=== PATIENT | female | born 1970 | race Caucasian/White ===

== ENCOUNTER 2016-11-05 20:25 | Emergency (ER) | payer MEDICAID ==
--- NOTE | 2016-11-05 22:49 | ED Physician Chart ---
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 SHE DENIES TRAUMA OR A BLOOD CLOT IN THE LEG IN THE PAST. SHE DENIES ANY OLD OR RECENT RIGHT LEG PROBLEMS. SHE STATES THAT SHE HAS RIGHT KNEE PAIN ALONG WITH LEG PAIN. SHE STATES THAT SHE HAB BEEN OBESE FOR MANY YEARS. Allergies:: Allergies Allergy/AdvReac Type Severity Reaction Status Date / Time No Known Allergies Allergy Verified 11/05/16 21:48 Vitals:: Vital Signs - 8 hr 11/05/16 21:37 Temp 97.8 F HR 78 RR 18 BP 135/70 O2 Sat % 97 Historian:: Patient Review:: Nurse's Note Reviewed Review of Systems - Review of Systems General/Constitutional: Fever, No fever, No chills, No weight loss, No weakness , No diaphoresis, No edema, No loss of appetite, Other (OBESE) Skin: No skin lesions, No rash, No bruising Head: No headache, No light-headedness Eyes: No loss of vision, No pain, No diplopia ENT: No earache, No nasal drainage, No sore throat, No tinnitus Neck: No neck pain, No swelling, No thyromegaly, No stiffness, No mass noted Cardio Vascular: No chest pain, No palpitations, No PND, No orthopnea, No edema Pulmonary: No SOB, No cough, No sputum, No wheezing GI: No nausea, No vomiting, No diarrhea, No pain, No melena, No hematochezia, No constipation, No hematemesis G/U: No dysuria, No frequency, No hematuria Musculoskeletal: Bone or joint pain, No back pain, No muscle pain, Other (THE RIGHT LOWER EXTREMITY IS TENDER TO TOUCH AND IS WARM WITH NORMAL BUT PAINFUL ROM.) Endocrine: No polyuria, No polydipsia Psychiatric: No prior psych history, No depression, No anxiety, No suicidal ideation Hematopoietic: No bruising, No lymphadenopathy Allergic/Immuno: No urticaria, No angioedema Neurological: No syncope, No focal symptoms, No weakness, No paresthesia, No headache, No seizure, No dizziness, No confusion, No vertigo Past Medical History - Past Medical History Obtainable: Yes Past Medical History: Dyslipidemia, Other (OBESITY) Family History: Diabetes Melitus, HTN Social History: Non Smoker, No Alcohol, No Drug Use Surgical History: Cholecystectomy, (THREE C-SECTIONS) Medication: Reviewed Family Medical History - Family Member Mother History Unknown: Yes Hx Family Coronary Artery Disease: Yes Hx Family Diabetes: Yes Physical Exam - Physical Examination General/Constitutional: Awake, Well-developed, well-nourished, Alert, No distress, GCS 15, Non-toxic appearing, Ambulatory Other Gen/Cons comments:: OBESE Head: Atraumatic Eyes: Lids, conjuctiva normal, PERRL, EOMI Skin: Nl inspection, No rash, No skin lesions, No ecchymosis, Well hydrated, No lymphadenopathy ENMT: External ears, nose nl, Nasal exam nl, Lips, teeth, gums nl Neck: Nontender, Full ROM w/o pain, No JVD, No nuchal rigidity, No bruit, No mass, No stridor Respiratory: Nl effort/Exclusion, Clear to Auscultation, No Wheeze/Rhonchi/Rales Cardio Vascular: RRR, No murmur, gallop, rubs, NL S1 S2 GI: No tenderness/rebounding/guarding, No organomegaly, No hernia, Normal BS's, Nondistended, No mass/bruits, No McBurney tenderness : No CVA tenderness Extremities: No tenderness or effusion, Full ROM, normal strength in all extremities, No edema, Normal digits & nails Other Extremities comments:: THE RIGHT THIGH AND CALF IS TENDER TO TOUCH AND WARM WITH PAINFUL BUT NORMAL ROM. THE PULSES ARE ALL NORMAL Neuro/Psych: Alert/oriented, DTR's symmetric, Normal sensory exam, Normal motor strength, Judgement/insight normal, Mood normal, Normal gait, No focal deficits Misc: normal gait, Normal back, No paraspinal tenderness Labs/Radiology/EKG Results - Lab Results Results: Abnormal Lab Results 11/05/16 11/05/16 11/05/16 22:15 22:42 22:42 WBC RBC Hgb Hct MCV MCH MCHC Differential RDW Plt Count MPV Neutrophils % Lymphocytes % Monocytes % Eosinophils % Basophils % PT 9.2 L INR 0.93 Sodium Potassium Chloride Carbon Dioxide Anion Gap BUN Creatinine Est GFR ( Amer) Est GFR (Non-Af Amer) BUN/Creatinine Ratio Glucose Calcium Total Bilirubin AST ALT Alkaline Phosphatase Troponin I Total Protein Albumin Globulin Albumin/Globulin Ratio Triglycerides 204 H Cholesterol 159 LDL Cholesterol Direct 101 HDL Cholesterol 39 TSH Urine Test NEGATIVE 11/05/16 11/05/16 11/05/16 22:42 22:42 22:42 WBC 10.1 RBC 4.86 Hgb 12.9 Hct 38.7 MCV 79.7 L MCH 26.5 L MCHC Differential 33.2 RDW 13.2 Plt Count 249 MPV 9.4 Neutrophils % 56.5 Lymphocytes % 32.0 Monocytes % 7.1 Eosinophils % 3.6 Basophils % 0.8 PT INR Sodium 133 L Potassium 3.8 Chloride 105 Carbon Dioxide 27.2 Anion Gap 4.6 L BUN 22 Creatinine 0.7 Est GFR ( Amer) > 60.0 Est GFR (Non-Af Amer) > 60.0 BUN/Creatinine Ratio 31.4 Glucose 110 H Calcium 9.6 Total Bilirubin 0.3 AST 21 ALT 21 Alkaline Phosphatase 78 Troponin I < 0.01 L Total Protein 7.8 Albumin 3.7 Globulin 4.1 Albumin/Globulin Ratio 0.9 L Triglycerides Cholesterol LDL Cholesterol Direct HDL Cholesterol TSH Urine Test 11/05/16 22:42 WBC RBC Hgb Hct MCV MCH MCHC Differential RDW Plt Count MPV Neutrophils % Lymphocytes % Monocytes % Eosinophils % Basophils % PT INR Sodium Potassium Chloride Carbon Dioxide Anion Gap BUN Creatinine Est GFR ( Amer) Est GFR (Non-Af Amer) BUN/Creatinine Ratio Glucose Calcium Total Bilirubin AST ALT Alkaline Phosphatase Troponin I Total Protein Albumin Globulin Albumin/Globulin Ratio Triglycerides Cholesterol LDL Cholesterol Direct HDL Cholesterol TSH 1.63 Urine Test - Radiology Results Results: ULTRA SOUND OF THE RIGHT LOWER EXT = NEG FOR DVT X-RAY OF THE RIGHT KNEE = NORMAL ED Septic Shock - . Is Septic Shock (SBP<90, OR Lactate>4 mmol\L) present?: No - <6hrs of presentation: Vital Signs: Vital Signs - 8 hr 11/05/16 21:37 Temp 97.8 F HR 78 RR 18 BP 135/70 O2 Sat % 97 Reassessment (Disposition) - Reassessment Reassessment Condition:: Improved - Diagnosis Diagnosis:: CELLULITIS OF THE RIGHT LOWER EXTREMITY - Aftercare/Follow up Instructions Aftercare/Follow-Up Instructions:: Counseled pt regarding lab results/diagnosis & need follow up, Refer to Discharge Instructions, Counseled pt & family regarding lab results/diagnosis & need follow up - Patient Disposition Discharge/Transfer:: Home Condition at Disposition:: Improved ED Discharge Plan - Patient Disposition Admit/Discharge/Transfer: PT DISCHARGED HOME Condition at Disposition: Improved
[2016-11-05 23:04] LABS: % BASOPHILS 0.8 % (0.0-2.0); % EOSINOPHILS 3.6 % (0.0-5.0); % MONOCYTES 7.1 % (2.0-10.0); % NEUTROPHILS 56.5 % (40.0-80.0); HEMATOCRIT 38.7 % (35.0-45.0); HEMOGLOBIN 12.9 gm/dL (11.7-15.5); MEAN CELL VOLUME 79.7 fl (81-100); MEAN CORPUSCULAR HEMOGLOBIN 26.5 pg (27.0-31.0); MEAN CORPUSCULAR HGB CONC 33.2 pg (28.0-36.0); MEAN PLATELET VOLUME 9.4 fl; NEUTROPHILE ABSOLUTE 5.7 Th/cmm (1.8-8.0); PLATELET COUNT 249 Th/cmm (150-400); RED BLOOD COUNT 4.86 Mil/cmm (3.80-5.10); RED CELL DISTRIBUTION WIDTH 13.2 % (11.5-20.0); WHITE BLOOD COUNT 10.1 Th/cmm (4.8-10.8)
[2016-11-05 23:16] LABS: ALB/GLOB RATIO 0.9 (1.0-1.8); ALKALINE PHOSPHATASE 78 U/L (34-104); ANION GAP 4.6 (7.0-16.0); BILIRUBIN,TOTAL 0.3 mg/dL (0.3-1.0); BUN - UREA NITROGEN 22 mg/dL (7-25); BUN/CREATININE RATIO 31.4; CALCIUM SERUM 9.6 mg/dL (8.6-10.3); CARBON DIOXIDE 27.2 mEq/L (21.0-31.0); CHLORIDE 105 mEq/L (98-107); CHOLESTEROL 159 mg/dL (<200); CREATININE - SERUM 0.7 mg/dL (0.6-1.2); GLUCOSE 110 mg/dL (70-105); POTASSIUM SERUM 3.8 mEq/L (3.5-5.1); SGOT 21 U/L (13-39); SGPT/ALT 21 U/L (7-52); SODIUM SERUM 133 mEq/L (136-145); TRIGLYCERIDES 204 mg/dL (<150)
[2016-11-05 23:23] LABS: INR 0.93 (0.5-1.4); PROTHROMBIN TIME (TEST) 9.2 SECONDS (9.5-11.5)
--- NOTE | 2016-11-06 10:40 | Diagnostic Imaging Report ---
Right lower extremity Doppler venous ultrasound exam HISTORY: Pain/swelling Sonographic sector images were obtained through the deep venous systems of the right leg. Associated Doppler data was obtained. The exam demonstrates patency of the common femoral, superficial femoral, popliteal, and posterior tibial veins. Specifically, no thrombus is seen. There are normal compressibility and augmentation responses. IMPRESSION: Negative exam for deep vein thrombophlebitis.
--- NOTE | 2016-11-06 10:41 | Diagnostic Imaging Report ---
Right knee (3 views) HISTORY: Pain No acute abnormalities. No fractures. Degenerative spur formation noted off the anterior margins of the patella. IMPRESSION: 1. No acute abnormalities 2. Degenerative changes about the patella
== END 2016-11-06 00:40 | disposition home or self-care (01) ==
LOC: ER 20:25
DX: L03.115 Cellulitis of right lower limb (principal); E78.5 Hyperlipidemia, unspecified
CPT/HCPCS: 99285; 93971; 96372; 73560; 84484; 36415; 84443; 85025; 85610; 83036; 81025; 80053; 80061; 87040 ×2; J1885

== ENCOUNTER 2017-02-12 18:20 | Inpatient (IN) | payer MEDICAID ==
[2017-02-12] MEDS ORDERED: Albuterol/Ipratropium Neb 3 ML AERS HHN ONE (18:23)
[2017-02-12] MEDS ORDERED: Sodium Chloride 0.9% 500 ML IV ONE (18:25)
[2017-02-12] MEDS ORDERED: Ipratropium Neb 0.5 mg/2.5 mL UD HHN ONE (18:26)
[2017-02-12] MEDS ORDERED: Albuterol Nebulizer 2.5mg/3mL HHN ONE (18:26)
[2017-02-12] MEDS ORDERED: Codeine/Promethazine Susp 5 mL UDC PO STA (19:36)
[2017-02-12] MEDS ORDERED: Codeine/Promethazine Susp 5 mL UDC ONE (19:37)
[2017-02-12 20:32] LABS: % BASOPHILS 0.1 % (0.0-2.0); % EOSINOPHILS 0.9 % (0.0-5.0); % LYMPHOCYTES 13.3 % (20.0-50.0); % MONOCYTES 3.9 % (2.0-10.0); % NEUTROPHILS 81.8 % (40.0-80.0); HEMATOCRIT 35.9 % (35.0-45.0); HEMOGLOBIN 12.5 gm/dL (11.7-15.5); MEAN CORPUSCULAR HEMOGLOBIN 27.8 pg (27.0-31.0); MEAN CORPUSCULAR HGB CONC 34.7 pg (28.0-36.0); PLATELET COUNT 222 Th/cmm (150-400); RED BLOOD COUNT 4.49 Mil/cmm (3.80-5.10); RED CELL DISTRIBUTION WIDTH 13.5 % (11.5-20.0)
[2017-02-12] MEDS ORDERED: Azithromycin 500 MG in Sodium Chloride 0.9% 250 ML IV ONE (20:38)
[2017-02-12] MEDS ORDERED: cefTRIAXone 1 GM in Sodium Chloride 0.9% 50 ML IV ONE (20:39)
[2017-02-12 20:45] LABS: ALB/GLOB RATIO 0.9 (1.0-1.8); ALKALINE PHOSPHATASE 73 U/L (34-104); ANION GAP 19.5 (7.0-16.0); BILIRUBIN,TOTAL 0.4 mg/dL (0.3-1.0); BUN - UREA NITROGEN 14 mg/dL (7-25); BUN/CREATININE RATIO 23.3; CALCIUM SERUM 9.1 mg/dL (8.6-10.3); CARBON DIOXIDE 22.2 mEq/L (21.0-31.0); CHLORIDE 103 mEq/L (98-107); CREATININE - SERUM 0.6 mg/dL (0.6-1.2); GLUCOSE 172 mg/dL (70-105); POTASSIUM SERUM 3.7 mEq/L (3.5-5.1); SGOT 18 U/L (13-39); SGPT/ALT 17 U/L (7-52); SODIUM SERUM 141 mEq/L (136-145)
[2017-02-12 20:48] LABS: WHITE BLOOD COUNT 12.2 Th/cmm (4.8-10.8)
--- NOTE | 2017-02-12 20:59 | ED Physician Chart ---
Chief Complaint/HPI - Patient Information Date Seen:: 02/12/17 Time Seen:: 19:01 Chief Complaint:: shortness of breath History of Present Illness:: 46-year-old female history of asthma, brought in by ambulance with acute, severe , shortness of breath that started about 20 minutes prior to arrival. Symptoms were started off with emotional upset when she was at her father's service. Has had associated cough for the past 2 months. Typically uses albuterol which helps her symptoms but this time it did not help. Denies fevers , chest pain, palpitations, nausea, vomiting, acute vision changes, headache. Allergies:: Allergies Allergy/AdvReac Type Severity Reaction Status Date / Time No Known Allergies Allergy Verified 11/05/16 21:48 Vitals:: Vital Signs - 8 hr 02/12/17 02/12/17 18:30 18:31 Temp 97.5 F HR 102 111 RR 20 24 BP 145/75 O2 Sat % 98 99 Historian:: Patient Review:: Nurse's Note Reviewed Review of Systems - Review of Systems Other: Complete system review otherwise unremarkable except as noted in history of present illness. Past Medical History - Past Medical History Past Medical History: Asthma/COPD Family History: None Social History: Non Smoker, No Alcohol, No Drug Use, Employed Surgical History: None Psychiatricy History: None Medication: Reviewed Family Medical History - Family Member Mother History Unknown: Yes Hx Family Coronary Artery Disease: Yes Hx Family Diabetes: Yes Physical Exam - Physical Examination Other:: INITIAL VITAL SIGNS: Reviewed by me GENERAL: Alert and interactive. In moderate respiratory distress HEAD: Head is normocephalic and atraumatic EYES: EOMI. PERRL. No scleral icterus. No conjunctival injection ENT: Moist mucous membranes. NECK: Supple. No masses. Full range of motion RESPIRATORY: Tachypneic with bilateral wheezing. CV: Regular rate and rhythm. No murmurs, rubs, or gallops ABDOMEN: Soft, non-distended, non-tender. No guarding. No rebound. No masses. EXTREMITIES: No deformity. No cyanosis. No edema. SKIN: Warm and dry. No obvious rashes. NEUROLOGIC: Alert and oriented. Face is symmetric. Speech is normal. Moves all extremities equally. Motor and sensory distally intact. Labs/Radiology/EKG Results - Lab Results Results: Laboratory Tests 02/12/17 02/12/17 02/12/17 20:20 20:20 20:20 WBC 12.2 H D RBC 4.49 Hgb 12.5 Hct 35.9 MCV 80.0 L MCH 27.8 MCHC Differential 34.7 RDW 13.5 Plt Count 222 MPV 9.0 Neutrophils % 81.8 H Lymphocytes % 13.3 L Monocytes % 3.9 Eosinophils % 0.9 Basophils % 0.1 Sodium 141 Potassium 3.7 Chloride 103 Carbon Dioxide 22.2 Anion Gap 19.5 H BUN 14 Creatinine 0.6 Est GFR ( Amer) > 60.0 Est GFR (Non-Af Amer) > 60.0 BUN/Creatinine Ratio 23.3 Glucose 172 H Whole Bld Lactic Acid 2.06 H* Calcium 9.1 Total Bilirubin 0.4 AST 18 ALT 17 Alkaline Phosphatase 73 Total Protein 7.0 Albumin 3.4 L Globulin 3.6 Albumin/Globulin Ratio 0.9 L - Radiology Results Results: Single AP VIEW Portable Chest X-ray was interpreted independently and contemporaneously by Doris Navarro MD: No cardiomegaly Normal mediastinum No lung infiltrates No pneumothorax No soft tissue or bony abnormalities - EKG Interpretations Comments:: 12-lead EKG Interpretation by Doris Navarro MD: Sinus tachycardia with ventricular rate of 101 beats per minute Normal axis Normal intervals No acute ST or T wave changes. No obvious STEMI Assessment - Assessment General Assessment: Critical Care Time: 30 minutes Treatments/Evaluations: Close monitoring and treatment of unstable vital signs, cardiorespiratory, and neurologic status, while maintaining tight balance of fluid, respiratory, and cardiac interventions. This time includes discussing the case with the patient and the patient's family. This time does not include all procedures stated elsewhere in this record. This time also includes reviewing old records, labs and radiological studies. This time includes examining and re-examining the patient. Additionally, this time also includes arranging care with admitting and consulting physicians. Excludes all billable procedures: Yes This condition life threatening/high prob of deterioration: Yes ED Septic Shock - . Is Septic Shock (SBP<90, OR Lactate>4 mmol\L) present?: No - <6hrs of presentation: Vital Signs: Vital Signs - 8 hr 02/12/17 02/12/17 18:30 18:31 Temp 97.5 F HR 102 111 RR 20 24 BP 145/75 O2 Sat % 98 99 Reassessment (Disposition) - Reassessment Reassessment:: Patient in severe respiratory distress on arrival. Received Solu-Medrol and DuoNeb breathing treatment. Symptoms only improved a small amount. Remained tachycardic. Labs indicate elevated white count and lactic acid levels. No signs of pneumonia on x-ray however given history of asthma she will need antibiotics. This patient is septic with bronchitis. Discussed with admitting physician. Patient admitted for further workup and treatment. Reassessment Condition:: Unchanged, Improved - Diagnosis Diagnosis:: Sepsis, bronchitis Acute respiratory distress due to acute asthma exacerbation - Aftercare/Follow up Instructions Aftercare/Follow-Up Instructions:: Counseled pt regarding lab results/diagnosis & need follow up, Refer to Discharge Instructions - Patient Disposition Discharge/Transfer:: Home Admitting Medical Physician:: Nakul Hayes Time:: 19:45 Condition at Disposition:: Improved ED Discharge Plan - Patient Disposition Instructions: Anxiety and Panic Attacks, [id number], Asthma, Adult, Easy-to- Read
[2017-02-12] MEDS ORDERED: Sodium Chloride 0.9% 1,000 ML IV SCH (21:22)
[2017-02-12 21:28] LABS: HCO3 24.8 mEq/L (20.0-26.0)
[2017-02-12 21:29] LABS: ABG SOURCE ARTERIAL
[2017-02-12] MEDS ORDERED: Albuterol/Ipratropium Neb 3 ML AERS HHN PRN (21:29)
[2017-02-12 21:30] LABS: FIO2 21
[2017-02-12 21:31] LABS: CRITICAL VALUES REPORTED BY DV
[2017-02-12] MEDS: Albuterol/Ipratropium Neb 3 ML AERS HHN SCH (22:55)
[2017-02-13] MEDS: Albuterol/Ipratropium Neb 3 ML AERS HHN SCH ×6 (03:22→23:42)
--- NOTE | 2017-02-13 04:21 | Admit Criteria Form ---
Admit Criteria Forms - Admit Criteria Diagnosis: SEPSIS and OTHER FEBRILE ILLNESS, W/O FOCAL INFECTION Clinical Indications for Admission to Inpatient Care ( Place 'X' for any and all applicable criteria): Admission is indicated for ANY ONE of the following (1)(2)(3)(4): [ ] I. Bacteremia [ ]II. Suspected or identified specific infection requiring hospitalization (eg, meningitis, endocarditis) [ ]III. Hemodynamic instability [ ]IV. Altered mental status [ ]V. Failure or unavailability of outpatient antimicrobial treatment [ ]. Hypoxemia [ ]VII. Seizures [ ]VIII. High-risk febrile neutropenia [ ]IX. Need for parenteral antibiotic in patient who is likely to abuse vascular access device (eg, injection drug user) [A](7) [ ]X. Temperature greater than 104.9 degrees F (40.5 degrees C) (oral) [x ]XI. Inpatient admission required rather than observation care because of ANY ONE of the following: [ ]1) Specific infection identified that is too severe for outpatient treatment or observation care trial [ ]2) Metabolic disorder (eg, hypoglycemia, hyperglycemia, metabolic acidosis) that is severe or persistent [ ]3) Temperature greater than 103.1 degrees F (39.5 degrees C) ( oral) that is not responsive to observation care treatment [ ]4) IV fluid to replace significant ongoing (eg, for over 24 hours) losses (> 3 L/m2 per day) [x ]5) Supplemental oxygen or respiratory treatments for over 24 hours that is performable only in acute inpatient setting [ ]6) Parenteral nutrition regimen need that must be implemented on inpatient basis [ ]7) Strict or protective (eg, laminar flow) isolation [x ]8) Other condition, treatment or monitoring requiring inpatient admission Extended stay beyond goal length of stay may be needed for(1)(3) [ ]a) Sepsis or septic shock(22) [ ]b) Positive blood cultures [ ]c) Insufficient oral intake [ ]d) High-risk febrile neutropenia(29)(30) [ ]e) Continued fever and clinical instability [ ]f) Clinically active comorbid illness (e.g,heart failure, renal failure , diabetes) The original [employer] content created by [employer] has been revised. The portions of the content which have been revised are identified through the use of italic text or in bold, and [employer] (formerly [employer]) has neither reviewed nor approved the modified material. All other unmodified content is copyright [facility]. Please see references footnoted in the original [facility] edition 2016 Admit Criteria Met?: Yes
[2017-02-13 06:11] LABS: % BASOPHILS 0.2 % (0.0-2.0); % EOSINOPHILS 0.1 % (0.0-5.0); % LYMPHOCYTES 10.3 % (20.0-50.0); % NEUTROPHILS 88.4 % (40.0-80.0); HEMATOCRIT 35.4 % (35.0-45.0); HEMOGLOBIN 11.8 gm/dL (11.7-15.5); MEAN CELL VOLUME 80.1 fl (81-100); MEAN CORPUSCULAR HEMOGLOBIN 26.7 pg (27.0-31.0); MEAN CORPUSCULAR HGB CONC 33.3 pg (28.0-36.0); MEAN PLATELET VOLUME 8.8 fl; NEUTROPHILE ABSOLUTE 8.5 Th/cmm (1.8-8.0); PLATELET COUNT 229 Th/cmm (150-400); RED BLOOD COUNT 4.42 Mil/cmm (3.80-5.10); RED CELL DISTRIBUTION WIDTH 13.7 % (11.5-20.0)
[2017-02-13 06:13] LABS: WHITE BLOOD COUNT 9.6 Th/cmm (4.8-10.8)
[2017-02-13 06:42] LABS: ALB/GLOB RATIO 0.9 (1.0-1.8); ALKALINE PHOSPHATASE 57 U/L (34-104); ANION GAP 13.9 (7.0-16.0); BILIRUBIN,TOTAL 0.3 mg/dL (0.3-1.0); BUN - UREA NITROGEN 14 mg/dL (7-25); BUN/CREATININE RATIO 23.3; CALCIUM SERUM 8.7 mg/dL (8.6-10.3); CARBON DIOXIDE 19.1 mEq/L (21.0-31.0); CHLORIDE 108 mEq/L (98-107); CREATININE - SERUM 0.6 mg/dL (0.6-1.2); GLUCOSE 186 mg/dL (70-105); SGOT 16 U/L (13-39); SGPT/ALT 16 U/L (7-52); SODIUM SERUM 137 mEq/L (136-145)
--- NOTE | 2017-02-13 09:13 | Diagnostic Imaging Report ---
Portable chest x-ray HISTORY: Shortness of breath, cough The overall heart size is difficult to assess with portable technique in a poor inspiration. No acute focal pulmonary processes. No hilar or mediastinal abnormalities. IMPRESSION: 1. No focal pulmonary processes
[2017-02-13] MEDS ORDERED: Sodium Chloride 0.9% 1,000 ML IV SCH (13:56)
[2017-02-13] MEDS ORDERED: Lidocaine 5% Patch TD SCH (14:00)
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
[2017-02-13] MEDS: Pantoprazole 40 mg/Packet PO SCH (17:43)
[2017-02-13] MEDS: Budesonide 0.5 Mg/2 mL Ud HHN SCH (18:56)
[2017-02-13] MEDS ORDERED: Albuterol/Ipratropium Neb 3 ML AERS HHN SCH (19:00)
[2017-02-13] MEDS ORDERED: Budesonide 0.5 Mg/2 mL Ud HHN SCH (19:00)
[2017-02-13] MEDS: methylPREDNISolone SS 40 mg Vial IVP SCH (19:20)
[2017-02-14] MEDS: methylPREDNISolone SS 40 mg Vial IVP SCH ×4 (01:31→17:42)
[2017-02-14] MEDS: Albuterol/Ipratropium Neb 3 ML AERS HHN SCH ×6 (03:13→23:36)
[2017-02-14] MEDS: guaiFENesin 200 MG/10 ML UDC PO PRN ×2 (05:35→21:34)
[2017-02-14] MEDS: Budesonide 0.5 Mg/2 mL Ud HHN SCH ×2 (06:57→20:15)
[2017-02-14 07:25] LABS: HEMATOCRIT 33.1 % (35.0-45.0); HEMOGLOBIN 11.2 gm/dL (11.7-15.5); MEAN CELL VOLUME 80.9 fl (81-100); MEAN CORPUSCULAR HEMOGLOBIN 27.3 pg (27.0-31.0); MEAN CORPUSCULAR HGB CONC 33.7 pg (28.0-36.0); MEAN PLATELET VOLUME 9.1 fl; PLATELET COUNT 216 Th/cmm (150-400); RED CELL DISTRIBUTION WIDTH 13.9 % (11.5-20.0)
[2017-02-14 07:46] LABS: ALB/GLOB RATIO 0.9 (1.0-1.8); ALKALINE PHOSPHATASE 58 U/L (34-104); AMYLASE SERUM 31 U/L (29-103); ANION GAP 9.5 (7.0-16.0); BILIRUBIN,TOTAL 0.2 mg/dL (0.3-1.0); BUN - UREA NITROGEN 16 mg/dL (7-25); BUN/CREATININE RATIO 26.7; CARBON DIOXIDE 22.9 mEq/L (21.0-31.0); CHLORIDE 107 mEq/L (98-107); CHOLESTEROL 145 mg/dL (<200); CREATININE - SERUM 0.6 mg/dL (0.6-1.2); GLUCOSE 186 mg/dL (70-105); POTASSIUM SERUM 4.4 mEq/L (3.5-5.1); SGOT 14 U/L (13-39); SGPT/ALT 16 U/L (7-52); SODIUM SERUM 135 mEq/L (136-145); TRIGLYCERIDES 100 mg/dL (<150); URIC ACID 4.3 mg/dL (2.3-6.6)
[2017-02-14 08:16] LABS: URINE BILIRUBIN NEGATIVE (NEGATIVE); URINE COLOR YELLOW; URINE GLUCOSE (UA) NEGATIVE (NEGATIVE)
[2017-02-14 08:17] LABS: URINE BLOOD NEGATIVE (NEGATIVE); URINE KETONE NEGATIVE (NEGATIVE); URINE PROTEIN NEGATIVE (NEGATIVE); URINE UROBILINOGEN 0.2 E.U./dL (0.2 - 1.0)
[2017-02-14 08:34] LABS: TSH 0.23 uIU/ml (0.34-5.60)
[2017-02-14 08:45] LABS: BAND NEUTROPHILE 3 % (0-10); NEUTROPHILS 84 % (40-80); TOTAL CELLS COUNTED 100
[2017-02-14] MEDS: Pantoprazole 40 mg/Packet PO SCH (08:45)
[2017-02-14 08:46] LABS: PLATELET ESTIMATE ADEQUATE (NORMAL)
[2017-02-14 09:55] LABS: BE(B) -4.1 mEq/L (-3.0-3.0); HCO3 21.7 mEq/L (20.0-26.0); pH 7.36 (7.35-7.45)
[2017-02-14 09:56] LABS: ABG SOURCE Arterial; ALLEN TEST Positive; CRITICAL VALUES REPORTED BY ACELIS; FIO2 21
--- NOTE | 2017-02-14 11:21 | Diagnostic Imaging Report ---
Chest x-ray (3 views) HISTORY: Shortness of breath The exam is limited due to patient size, body habitus, and a very poor inspiration. The heart appears enlarged. There is a poor inspiration. Allowing for this factor, no definite focal processes are seen. IMPRESSION: 1. Limited exam due to patient's size, body habitus, and a poor inspiration 2. No definite focal pulmonary processes 3. Suggestion of cardiomegaly
--- NOTE | 2017-02-14 11:36 | Consultation ---
Consult Note - Consult Note Consult Note: [id number]
[2017-02-14] MEDS: Vancomycin HCl 1.5 GM in Sodium Chloride 0.9% 500 ML IV SCH ×2 (14:24→21:22)
--- NOTE | 2017-02-14 15:14 | Diagnostic Imaging Report ---
Chest x-ray (2 views) HISTORY: Shortness breath, cough The exam supplements the radiographs performed earlier in the day. Radiographic technique is optimized. No focal pulmonary processes are seen. No hilar or mediastinal abnormalities. IMPRESSION: No acute focal pulmonary processes.
--- NOTE | 2017-02-14 21:25 | Consultation ---
DATE OF CONSULTATION: 02/13/2017 REASON FOR CONSULTATION: Asthmatic bronchitis/possibly sleep apnea syndrome. HISTORY OF PRESENT ILLNESS: This is a 46-year-old female. She has been coughing on and off with some wheezing for the last 2-3 months, mostly is coughing, no shortness of breath and wheezing and feeling fatigued. She has been to the Emergency Room, was given steroid at [facility] as well as inhaled bronchodilator. The patient's symptoms did not significantly change. She came to this Emergency Room for further care and necessary treatment. She has no classical chest pain, no sputum production, periodic wheezing, occasional sinus dribbling, periodic dyspeptic symptomatology, is not able to sleep partly because of pain and she has "insomnia," has gained 40-50 pounds in the last 2 years. No swelling of the legs. No PND or orthopnea. Complains of some of these problems for the last couple of years, has been taking [place] for the same. Complains of mild shortness of breath on exertion, has periodic turning and tossing around in sleep according to her family history. PAST MEDICAL HISTORY: 1. Chronic back pain. 2. Possibly gastroesophageal reflux disease. 3. Obstructive sleep apnea syndrome, suspect. ALLERGIES: None to any medication. FAMILY HISTORY: One of the son has "bronchitis," asthmatic symptoms. WORK HISTORY: Currently disabled. 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 SURGICAL HISTORY: Nonspecific. PHYSICAL EXAMINATION: GENERAL: This is a very heavy set female, awake, alert, oriented, not in acute distress. VITAL SIGNS: The patient's temperature is 98, pulse is 97, respirations is low 20s, saturation is 90s on 2 liters. HEENT: Examination of the head is essentially unremarkable. Pupils appear to be equal and reacting to light. Conjunctivae are slightly pallor. Oral cavity shows small oropharyngeal opening. NECK: Short. No nodes in the neck could be palpated. CHEST: Shows occasional rhonchi with diminished air entry. HEART: Regular. ABDOMEN: Quite protuberant with significant skin folds because of the obesity. EXTREMITIES: Shows slight peripheral edema. SKIN: Extensive tattoo markings in upper and lower extremities. LABORATORY DATA: WBC is 12.2. The patient's ABG, pO2 is 58 on room air and the patient's white count is 9.6, hemoglobin 11.8 and neutrophils 84 and electrolytes shows sugar of 186 with lactic acid 3.23, albumin is 3.4. Chest x-ray of poor quality, under penetrated with some increased bronchovascular marking, though quality of x-ray is not the best. ASSESSMENT: 1. The patient has recurrent bronchial asthma, not well controlled. 2. Significant morbid obesity with obesity hypoventilation syndrome and suspect gastroesophageal reflux disease, possibly diabetes mellitus with significant morbid obesity with chronic pain syndrome. PLANS AND SUGGESTIONS: 1. Pathophysiology of disease was discussed for asthma and sleep apnea. 2. Has to lose weight and has to cut down the pain medicine. We will give aggressive DuoNeb breathing treatment. We will go ahead and get Protonix treatment. Also, we will go ahead and give limited dose of steroid, add montelukast to current treatment and start ambulating or repeat x-ray, need for O2 and see how she does in the next 24-48 hours and go from there. JOB# [id number]
[2017-02-14] MEDS: Lidocaine 5% Patch TD SCH (21:33)
--- NOTE | 2017-02-14 22:13 | General Progress Note ---
Subjective - Review of Systems Service Date: 02/14/17 Subjective: Patient seen and examined Chart reviewed patient doing ok c/o low back pain denied sob or chest pain or fever or chills Objective - Results Result Diagrams: 02/14/17 06:30 02/14/17 06:30 Recent Labs: Laboratory Last Values WBC 12.0 Th/cmm (4.8-10.8) H D 02/14/17 06:30 RBC 4.10 Mil/cmm (3.80-5.10) 02/14/17 06:30 Hgb 11.2 gm/dL (11.7-15.5) L 02/14/17 06:30 Hct 33.1 % (35.0-45.0) L 02/14/17 06:30 MCV 80.9 fl (81-100) L 02/14/17 06:30 MCH 27.3 pg (27.0-31.0) 02/14/17 06:30 MCHC Differential 33.7 pg (28.0-36.0) 02/14/17 06:30 RDW 13.9 % (11.5-20.0) 02/14/17 06:30 Plt Count 216 Th/cmm (150-400) 02/14/17 06:30 MPV 9.1 fl 02/14/17 06:30 Neutrophils % 88.4 % (40.0-80.0) H 02/13/17 05:50 Band Neutrophils % 3 % (0-10) 02/14/17 06:30 Lymphocytes % 10.3 % (20.0-50.0) L 02/13/17 05:50 Monocytes % 1.0 % (2.0-10.0) L 02/13/17 05:50 Eosinophils % 0.1 % (0.0-5.0) 02/13/17 05:50 Basophils % 0.2 % (0.0-2.0) 02/13/17 05:50 Neutrophils (Manual) 84 % (40-80) H 02/14/17 06:30 Lymphocytes 10 % (20-50) L 02/14/17 06:30 Monocytes 3 % (2-10) 02/14/17 06:30 Platelet Estimate ADEQUATE (NORMAL) 02/14/17 06:30 Specimen Source Arterial 02/14/17 09:35 Sample Site Right Radial 02/14/17 09:35 pH 7.36 (7.35-7.45) 02/14/17 09:35 pCO2 37.0 mmHg (35.0-45.0) 02/14/17 09:35 pO2 79.0 mmHg (80.0-100.0) L 02/14/17 09:35 HCO3 21.7 mEq/L (20.0-26.0) 02/14/17 09:35 Base Excess -4.1 mEq/L (-3.0-3.0) L 02/14/17 09:35 O2 Saturation 95.0 % (92.0-100.0) 02/14/17 09:35 Jarred Test Positive 02/14/17 09:35 Vent Rate NA 02/14/17 09:35 Inspired O2 21 02/14/17 09:35 Tidal Volume NA 02/14/17 09:35 PEEP NA 02/14/17 09:35 Pressure (ins/psv/peep) NA 02/14/17 09:35 Critical Value ACELIS 02/14/17 09:35 Sodium 135 mEq/L (136-145) L 02/14/17 06:30 Potassium 4.4 mEq/L (3.5-5.1) 02/14/17 06:30 Chloride 107 mEq/L (98-107) 02/14/17 06:30 Carbon Dioxide 22.9 mEq/L (21.0-31.0) 02/14/17 06:30 Anion Gap 9.5 (7.0-16.0) 02/14/17 06:30 BUN 16 mg/dL (7-25) 02/14/17 06:30 Creatinine 0.6 mg/dL (0.6-1.2) 02/14/17 06:30 Est GFR ( Amer) > 60.0 ml/min (>90) 02/14/17 06:30 Est GFR (Non-Af Amer) > 60.0 ml/min 02/14/17 06:30 BUN/Creatinine Ratio 26.7 02/14/17 06:30 Glucose 186 mg/dL (70-105) H 02/14/17 06:30 Hemoglobin A1c % 6.1 % (4.0-6.0) H 02/13/17 05:50 Whole Bld Lactic Acid 3.23 mmol/L (0.60-1.99) H* 02/13/17 05:50 Uric Acid 4.3 mg/dL (2.3-6.6) 02/14/17 06:30 Calcium 9.0 mg/dL (8.6-10.3) 02/14/17 06:30 Total Bilirubin 0.2 mg/dL (0.3-1.0) L 02/14/17 06:30 AST 14 U/L (13-39) 02/14/17 06:30 ALT 16 U/L (7-52) 02/14/17 06:30 Alkaline Phosphatase 58 U/L (34-104) 02/14/17 06:30 Ammonia 38 umol/L (16-53) 02/14/17 06:30 Total Protein 7.0 gm/dL (6.0-8.3) 02/14/17 06:30 Albumin 3.4 gm/dL (3.7-5.3) L 02/14/17 06:30 Globulin 3.6 gm/dL 02/14/17 06:30 Albumin/Globulin Ratio 0.9 (1.0-1.8) L 02/14/17 06:30 Triglycerides 100 mg/dL (<150) 02/14/17 06:30 Cholesterol 145 mg/dL (<200) 02/14/17 06:30 LDL Cholesterol Direct 94 mg/dL (75-193) 02/14/17 06:30 HDL Cholesterol 49 mg/dL (23-92) 02/14/17 06:30 Amylase 31 U/L (29-103) 02/14/17 06:30 TSH 0.23 uIU/ml (0.34-5.60) L 02/14/17 06:30 Urine Source MIDSTREAM 02/14/17 05:00 Urine Color YELLOW 02/14/17 05:00 Urine Clarity CLEAR (CLEAR) 02/14/17 05:00 Urine pH 6.0 02/14/17 05:00 Ur Specific [place] 1.020 (1.005-1.030) 02/14/17 05:00 Urine Protein NEGATIVE mg/dL (NEGATIVE) 02/14/17 05:00 Urine Glucose (UA) NEGATIVE mg/dL (NEGATIVE) 02/14/17 05:00 Urine Ketones NEGATIVE mg/dL (NEGATIVE) 02/14/17 05:00 Urine Blood NEGATIVE (NEGATIVE) 02/14/17 05:00 Urine Nitrate NEGATIVE (NEGATIVE) 02/14/17 05:00 Urine Bilirubin NEGATIVE (NEGATIVE) 02/14/17 05:00 Urine Urobilinogen 0.2 E.U./dL (0.2 - 1.0) 02/14/17 05:00 Ur Leukocyte Esterase NEGATIVE (NEGATIVE) 02/14/17 05:00 - Physical Exam Vitals and I&O: Vital Signs Temp 98.8 F 02/14/17 20:00 Pulse 89 02/14/17 20:29 Resp 20 02/14/17 20:29 BP 128/78 02/14/17 20:00 Pulse Ox 98 02/14/17 20:29 Intake & Output 02/14/17 02/14/17 02/15/17 06:59 18:59 06:59 Intake Total 400 500 Balance 400 500 Intake: Intake, IV Amount 500 Vancomycin HCl 1.5 gm In 500 Sodium Chloride 0.9% 500 ml @ 250 mls/hr IV Q8H [facility] Rx#:[id number] Oral 400 Active Medications: Current Medications Acetaminophen (Tylenol) 650 mg PO Q4H PRN PRN Reason: Pain or Fever >101 Stop: 04/13/17 21:29 Albuterol/Ipratropium (Duoneb Neb) 3 ml HHN Q4HRT [facility] Stop: 04/13/17 22:59 Last Admin: 02/14/17 21:44 Dose: Not Given Albuterol/Ipratropium (Duoneb Neb) 3 ml HHN Q2H PRN PRN Reason: sob Stop: 04/13/17 21:29 Last Admin: 02/14/17 13:18 Dose: 3 ml Albuterol/Ipratropium (Duoneb Neb) 3 ml HHN [id number] [facility] Stop: 04/14/17 18:59 Last Admin: 02/14/17 20:15 Dose: 3 ml Azithromycin (Zithromax) 250 mg PO DAILY [facility] Stop: 04/14/17 13:59 Last Admin: 02/14/17 08:40 Dose: 250 mg Budesonide (Pulmicort) 0.5 mg HHN BIDRT [facility] Stop: 04/14/17 18:59 Last Admin: 02/14/17 20:15 Dose: 0.5 mg Budesonide (Pulmicort) 0.5 mg HHN BIDRT [facility] Stop: 04/14/17 18:59 Last Admin: 02/14/17 21:43 Dose: Not Given Gabapentin (Neurontin) 100 mg PO TID [facility] Stop: 04/14/17 13:59 Last Admin: 02/14/17 21:33 Dose: 100 mg Guaifenesin (Robitussin) 200 mg PO Q8HR PRN PRN Reason: Cough Stop: 04/13/17 21:29 Last Admin: 02/14/17 21:34 Dose: 200 mg Ceftriaxone Sodium 1 gm/ (Dextrose) 50 mls @ 100 mls/hr IV Q24H [facility] Stop: 04/14/17 13:59 Last Admin: 02/14/17 14:25 Dose: 100 mls/hr Sodium Chloride (Nacl 0.9%) 1,000 mls @ 40 mls/hr IV .Q24H [facility] Stop: 04/14/17 13:55 Last Admin: 02/13/17 14:42 Dose: 40 mls/hr Lidocaine (Lidoderm 5% Patch) 1 patch TD DAILY@2100 [facility] Stop: 04/15/17 20:59 Last Admin: 02/14/17 21:33 Dose: 1 patch Methylprednisolone Sodium Succinate (Solu-Medrol) 40 mg IVP Q6HR [facility] Stop: 04/14/17 17:59 Last Admin: 02/14/17 17:42 Dose: 40 mg Montelukast Sodium (Singulair) 10 mg PO HS [facility] Stop: 04/14/17 20:59 Last Admin: 02/14/17 21:33 Dose: 10 mg Ondansetron HCl (Zofran) 4 mg IV Q6H PRN PRN Reason: Nausea / Vomiting Stop: 04/14/17 13:50 Pantoprazole Sodium (Protonix) 40 mg IVP DAILY [facility] Stop: 04/14/17 08:59 Last Admin: 02/14/17 08:40 Dose: 40 mg Tramadol HCl (Ultram) 100 mg PO Q6HR PRN PRN Reason: PAIN 6 TO 10 Stop: 04/14/17 13:49 Last Admin: 02/14/17 17:42 Dose: 100 mg Cardiovascular: Normal S1, Normal S2 Lungs: Other ( bilateral exp wheezing ) Abdomen: Soft Assessment/Plan - Problem List Patient Problems: All Active Problems DYSPNEA, WHEEZING AND COUGH DURING GRIEV (Acute) - Assessment Assessment: Acute Asthma exacerbation Chronic low back pain Obesity - Plan Plan: Patient stated she had back injury happened at work in the past for which she had seen Pain management Per RN patient doesn't want strong narcotics pain meds. Patient agreed to increase ULTRAM to 100mg Q6hr prn Continue Rocephine and Zithromax Oxygen and Bronchodilator DC Vanco (chest x ray clear) Pul and ID on board Plan of care discussed with patient and nursings staff Nutritional Asmnt/Malnutr-PDOC - Dietary Evaluation Malnutrition Findings (Please click <Entered> for more info): Nutritional Asmnt/Malnutrition Start: 02/14/17 15: 44 Text: Status: Complete Freq: Document 02/14/17 15:44 GSUN (Rec: 02/14/17 16:01 [email or web address]) Nutritional Asmnt/Malnutrition Patient General Information Nutritional Screening High Risk Screening Diagnosis Obesity hypoventilation with acute resp failure, acute tracheobronchitis Pertinent Medical Hx/Surgical Hx Morbid obesity, obesity hypoventilation syndrome, sleep apnea, stress disorder, left-sided sciatica, hx bronchitis Subjective Information 46 [address] attempted to visit pt 3 times. First 2 times pt was having difficulty breathing with nursing staff at bedside assisting. Spoke to pt on third visit with family at bedside. Pt was pleasant, with soft voice, appeared lethargic. Pt politely refused to discuss weight at this time. Pt denied nutritional concerns. Pt denied shortness of breath affecting chewing/ swallowing. Avg PO intake 100% of meals, meeting nutritional needs. Current Diet Order/ Nutrition Support [id number] Pertinent Medications Solu-Medrol, Vancomycin, Zofran, Protonix Pertinent Labs 02/13: A1c 6.1H 02/14: glucose 186H Nutritional Hx/Data Height 1.6 m Height (Calculated Centimeters) 160.0 Current Weight (lbs) 136.078 kg Weight (Calculated Kilograms) 136.1 Weight (Calculated Grams) 604322.7 [place] Body Weight 115 Weight Status Morbidly Obese GI Symptoms Food Allergies No Skin Integrity/Comment: Teddy 18. Skin intact. Current %PO Good (75-100%) Estimated Nutritional Goals BEE in Kcals: Adj wt of IBW Calories/Kcals/Kg AdjBW 161.3lb/73.3kg Kcals Calculated 1833-2199kcal (25-30kcal/kg) Protein: Adj wt of IBW Protein Calculated 59g (0.8g/kg) Fluid: ml 1833-2199ml (1ml/kcal) Nutritional Problem 1. Problem Problem Altered nutrition related laboratory values related to Etiology hyperglycemia aeb Signs/Symptoms: A1c 6.1H, glucose 186H Intervention/Recommendation Comments 1. Recommend [id number] due to elevated A1c and glucose. Obtained order from Dr. Damon. Avg PO intake is adequate. 2. Monitor weight. Pt politely refused to discuss weight at this time, will attempt another discussion during follow up. Expected Outcomes/Goals Expected Outcomes/Goals 1. PO intake to meet at least 75% of estimated nutritional needs.
[2017-02-15] MEDS: methylPREDNISolone SS 40 mg Vial IVP SCH ×5 (00:18→21:08)
[2017-02-15] MEDS: Albuterol/Ipratropium Neb 3 ML AERS HHN SCH ×6 (02:02→23:16)
--- NOTE | 2017-02-15 04:39 | Progress Notes ---
DATE: 02/14/2017 PROBLEM: Acute bronchial asthma. SYMPTOMS: Still complains of chest tightness. No shortness of breath. No coughing or wheezing. PHYSICAL EXAMINATION: VITAL SIGNS: The patient's recorded vitals: Temperature is 97.0, blood pressure 125/70, saturation 100% on 2 L ____. NECK: Veins not visualized. CHEST: There is slightly costochondral tenderness. Diminished air entry. No adventitious breath sounds. HEART: Regular. ABDOMEN: Soft, nontender. EXTREMITIES: Shows very minimal trace of peripheral edema. LABORATORY STUDIES: White count is 12.0, hemoglobin 11.2. The patient's pO2 is 79 on room air. Electrolytes are okay. Sugar is borderline high. TSH is little bit low side. IMPRESSION: 1. The patient has acute bronchial asthma, improving. 2. Costochondritis. 3. Significant GE reflux. 4. Obstructive sleep apnea syndrome. PLANS AND SUGGESTIONS: Okay pulmonary chao to discharge with inhaled steroid as well as tapering steroid including montelukast and oral antibiotics and need to be followed up as an outpatient if authorized for full study of sleep apnea syndrome. Also, I have discussed at length with the patient to start doing exercise, losing weight, etc. and go from there. JOB# [id number]
--- NOTE | 2017-02-15 05:23 | Consultation ---
DATE OF CONSULTATION: 02/14/2017 REFERRING PHYSICIAN: Dr. Damon. REASON FOR CONSULTATION: Blood culture growing gram-positive cocci. HISTORY OF PRESENT ILLNESS: The patient is a 46-year-old female with a past medical history of asthma admitted to the hospital for shortness of breath, asthma exacerbation. The patient also was diagnosed to have sciatica and she is taking significant doses of Advil. On initial evaluation, the patient's temperature was 97.5 degrees Fahrenheit and WBC count was 12,200. Sepsis workup was performed and blood culture grew gram-positive cocci in clusters, one of the two sets. The patient was started on Rocephin and ID consult was called for further antibiotic management. PAST MEDICAL HISTORY: Asthma, obesity, sciatica, and lumbar radiculopathy. ALLERGIES: NKDA. MEDICATIONS: As per medication reconciliation sheet. Antibiotic chao, the patient is on Rocephin. SOCIAL HISTORY: The patient lives at home. She denies any smoking, alcohol, or drug use. The patient is unemployed. 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 MEDICATIONS: As per medication reconciliation sheet. Antibiotic chao, the patient is on Rocephin. FAMILY HISTORY: Noncontributory. PHYSICAL EXAMINATION: VITAL SIGNS: Shows temperature is 98.2 degrees Fahrenheit, pulse 87, respirations 18, and blood pressure is 98/59. GENERAL: The patient is obese, not in acute distress. HEENT: Head is normocephalic and atraumatic. Oral cavity is moist, pink. Eyes: Pallor is present, no icterus. Eyes: No pallor, no icterus. PERRLA. EOMI. NECK: Supple. No JVD. No carotid bruit. Trachea in midline. CHEST: Bilateral breath sounds. No crackles or wheezing. HEART: S1, S2 within normal limits. Regular rate and rhythm. No murmur and no gallop. ABDOMEN: Soft, nontender, and nondistended. Bowel sounds are present. EXTREMITIES: No cyanosis, no clubbing, and no edema. NEUROLOGIC: Alert, awake, and oriented x 3. LABORATORY DATA: Current lab shows WBC count is 12,000, hemoglobin 11.2, hematocrit 33.1, platelets 216,000, neutrophil 84%, lymphocytes 10%. Sodium 135, potassium 4.4, chloride 107, bicarb is 22.9, BUN 16, creatinine 0.6, and glucose is 186. Blood culture one of the two sets grew gram positive cocci in clusters. Chest x-ray shows limited exam due to size, no definite pulmonary process, cardiomegaly. IMPRESSION: 1. Gram positive cocci bacteremia. Staph bacteremia. 2. Morbid obesity. 3. Chronic obstructive pulmonary disease, asthma. 4. Stress disorder. 5. Left-sided sciatic. 6. Hyperglycemia. 7. Elevated lactic acidosis, unknown, may have sepsis. 8. The patient actually has sleep apnea. RECOMMENDATIONS: We will start vancomycin IV. Repeat blood cultures. Depending on final blood culture report, define further therapy. Thank you, Dr. Freddy Damon for involving me in taking care of this patient. JOB# [id number] [email or web address]
[2017-02-15] MEDS: Budesonide 0.5 Mg/2 mL Ud HHN SCH ×2 (07:38→19:25)
--- NOTE | 2017-02-15 12:48 | Infectious Disease Prog Note ---
Infectious Disease Subjective - Review of Systems Service Date: 02/15/17 Subjective: Nonew change, there is no fever. Infectious Disease Objective - Results Result Diagrams: 02/14/17 06:30 02/14/17 06:30 Recent Labs: Laboratory Last Values WBC 12.0 Th/cmm (4.8-10.8) H D 02/14/17 06:30 RBC 4.10 Mil/cmm (3.80-5.10) 02/14/17 06:30 Hgb 11.2 gm/dL (11.7-15.5) L 02/14/17 06:30 Hct 33.1 % (35.0-45.0) L 02/14/17 06:30 MCV 80.9 fl (81-100) L 02/14/17 06:30 MCH 27.3 pg (27.0-31.0) 02/14/17 06:30 MCHC Differential 33.7 pg (28.0-36.0) 02/14/17 06:30 RDW 13.9 % (11.5-20.0) 02/14/17 06:30 Plt Count 216 Th/cmm (150-400) 02/14/17 06:30 MPV 9.1 fl 02/14/17 06:30 Neutrophils % 88.4 % (40.0-80.0) H 02/13/17 05:50 Band Neutrophils % 3 % (0-10) 02/14/17 06:30 Lymphocytes % 10.3 % (20.0-50.0) L 02/13/17 05:50 Monocytes % 1.0 % (2.0-10.0) L 02/13/17 05:50 Eosinophils % 0.1 % (0.0-5.0) 02/13/17 05:50 Basophils % 0.2 % (0.0-2.0) 02/13/17 05:50 Neutrophils (Manual) 84 % (40-80) H 02/14/17 06:30 Lymphocytes 10 % (20-50) L 02/14/17 06:30 Monocytes 3 % (2-10) 02/14/17 06:30 Platelet Estimate ADEQUATE (NORMAL) 02/14/17 06:30 Specimen Source Arterial 02/14/17 09:35 Sample Site Right Radial 02/14/17 09:35 pH 7.36 (7.35-7.45) 02/14/17 09:35 pCO2 37.0 mmHg (35.0-45.0) 02/14/17 09:35 pO2 79.0 mmHg (80.0-100.0) L 02/14/17 09:35 HCO3 21.7 mEq/L (20.0-26.0) 02/14/17 09:35 Base Excess -4.1 mEq/L (-3.0-3.0) L 02/14/17 09:35 O2 Saturation 95.0 % (92.0-100.0) 02/14/17 09:35 Jarred Test Positive 02/14/17 09:35 Vent Rate NA 02/14/17 09:35 Inspired O2 21 02/14/17 09:35 Tidal Volume NA 02/14/17 09:35 PEEP NA 02/14/17 09:35 Pressure (ins/psv/peep) NA 02/14/17 09:35 Critical Value ACELIS 02/14/17 09:35 Sodium 135 mEq/L (136-145) L 02/14/17 06:30 Potassium 4.4 mEq/L (3.5-5.1) 02/14/17 06:30 Chloride 107 mEq/L (98-107) 02/14/17 06:30 Carbon Dioxide 22.9 mEq/L (21.0-31.0) 02/14/17 06:30 Anion Gap 9.5 (7.0-16.0) 02/14/17 06:30 BUN 16 mg/dL (7-25) 02/14/17 06:30 Creatinine 0.6 mg/dL (0.6-1.2) 02/14/17 06:30 Est GFR ( Amer) > 60.0 ml/min (>90) 02/14/17 06:30 Est GFR (Non-Af Amer) > 60.0 ml/min 02/14/17 06:30 BUN/Creatinine Ratio 26.7 02/14/17 06:30 Glucose 186 mg/dL (70-105) H 02/14/17 06:30 Hemoglobin A1c % 6.1 % (4.0-6.0) H 02/13/17 05:50 Whole Bld Lactic Acid 3.23 mmol/L (0.60-1.99) H* 02/13/17 05:50 Uric Acid 4.3 mg/dL (2.3-6.6) 02/14/17 06:30 Calcium 9.0 mg/dL (8.6-10.3) 02/14/17 06:30 Total Bilirubin 0.2 mg/dL (0.3-1.0) L 02/14/17 06:30 AST 14 U/L (13-39) 02/14/17 06:30 ALT 16 U/L (7-52) 02/14/17 06:30 Alkaline Phosphatase 58 U/L (34-104) 02/14/17 06:30 Ammonia 38 umol/L (16-53) 02/14/17 06:30 Total Protein 7.0 gm/dL (6.0-8.3) 02/14/17 06:30 Albumin 3.4 gm/dL (3.7-5.3) L 02/14/17 06:30 Globulin 3.6 gm/dL 02/14/17 06:30 Albumin/Globulin Ratio 0.9 (1.0-1.8) L 02/14/17 06:30 Triglycerides 100 mg/dL (<150) 02/14/17 06:30 Cholesterol 145 mg/dL (<200) 02/14/17 06:30 LDL Cholesterol Direct 94 mg/dL (75-193) 02/14/17 06:30 HDL Cholesterol 49 mg/dL (23-92) 02/14/17 06:30 Amylase 31 U/L (29-103) 02/14/17 06:30 TSH 0.23 uIU/ml (0.34-5.60) L 02/14/17 06:30 Urine Source MIDSTREAM 02/14/17 05:00 Urine Color YELLOW 02/14/17 05:00 Urine Clarity CLEAR (CLEAR) 02/14/17 05:00 Urine pH 6.0 02/14/17 05:00 Ur Specific [place] 1.020 (1.005-1.030) 02/14/17 05:00 Urine Protein NEGATIVE mg/dL (NEGATIVE) 02/14/17 05:00 Urine Glucose (UA) NEGATIVE mg/dL (NEGATIVE) 02/14/17 05:00 Urine Ketones NEGATIVE mg/dL (NEGATIVE) 02/14/17 05:00 Urine Blood NEGATIVE (NEGATIVE) 02/14/17 05:00 Urine Nitrate NEGATIVE (NEGATIVE) 02/14/17 05:00 Urine Bilirubin NEGATIVE (NEGATIVE) 02/14/17 05:00 Urine Urobilinogen 0.2 E.U./dL (0.2 - 1.0) 02/14/17 05:00 Ur Leukocyte Esterase NEGATIVE (NEGATIVE) 02/14/17 05:00 Vancomycin Trough 8.5 ug/mL (10-20) L 02/15/17 11:00 - Physical Exam Vitals and I&O: Vital Signs Temp 98.2 F 02/15/17 12:00 Pulse 98 02/15/17 12:00 Resp 20 02/15/17 12:00 BP 134/79 02/15/17 12:00 Pulse Ox 98 02/15/17 12:00 Intake & Output 02/14/17 02/15/17 02/15/17 18:59 06:59 18:59 Intake Total 500 Balance 500 Intake: Intake, IV Amount 500 Vancomycin HCl 1.5 gm In 500 Sodium Chloride 0.9% 500 ml @ 250 mls/hr IV Q8H [facility] Rx#:[id number] Active Medications: Current Medications Acetaminophen (Tylenol) 650 mg PO Q4H PRN PRN Reason: Pain or Fever >101 Stop: 04/13/17 21:29 Last Admin: 02/15/17 08:49 Dose: 650 mg Albuterol/Ipratropium (Duoneb Neb) 3 ml HHN Q4HRT [facility] Stop: 04/13/17 22:59 Last Admin: 02/15/17 11:02 Dose: 3 ml Albuterol/Ipratropium (Duoneb Neb) 3 ml HHN Q2H PRN PRN Reason: sob Stop: 04/13/17 21:29 Last Admin: 02/14/17 13:18 Dose: 3 ml Albuterol/Ipratropium (Duoneb Neb) 3 ml HHN [id number] [facility] Stop: 04/14/17 18:59 Last Admin: 02/14/17 20:15 Dose: 3 ml Azithromycin (Zithromax) 250 mg PO DAILY [facility] Stop: 04/14/17 13:59 Last Admin: 02/15/17 08:48 Dose: 250 mg Budesonide (Pulmicort) 0.5 mg HHN BIDRT [facility] Stop: 04/14/17 18:59 Last Admin: 02/15/17 07:38 Dose: 0.5 mg Budesonide (Pulmicort) 0.5 mg HHN BIDRT [facility] Stop: 04/14/17 18:59 Last Admin: 02/14/17 21:43 Dose: Not Given Gabapentin (Neurontin) 100 mg PO TID [facility] Stop: 04/14/17 13:59 Last Admin: 02/15/17 08:48 Dose: 100 mg Guaifenesin (Robitussin) 200 mg PO Q8HR PRN PRN Reason: Cough Stop: 04/13/17 21:29 Last Admin: 02/14/17 21:34 Dose: 200 mg Ceftriaxone Sodium 1 gm/ (Dextrose) 50 mls @ 100 mls/hr IV Q24H [facility] Stop: 04/14/17 13:59 Last Admin: 02/14/17 14:25 Dose: 100 mls/hr Sodium Chloride (Nacl 0.9%) 1,000 mls @ 40 mls/hr IV .Q24H [facility] Stop: 04/14/17 13:55 Last Admin: 02/13/17 14:42 Dose: 40 mls/hr Lidocaine (Lidoderm 5% Patch) 1 patch TD DAILY@2100 [facility] Stop: 04/15/17 20:59 Last Admin: 02/14/17 21:33 Dose: 1 patch Methylprednisolone Sodium Succinate (Solu-Medrol) 40 mg IVP Q6HR [facility] Stop: 04/14/17 17:59 Last Admin: 02/15/17 11:23 Dose: 40 mg Montelukast Sodium (Singulair) 10 mg PO HS [facility] Stop: 04/14/17 20:59 Last Admin: 02/14/17 21:33 Dose: 10 mg Ondansetron HCl (Zofran) 4 mg IV Q6H PRN PRN Reason: Nausea / Vomiting Stop: 04/14/17 13:50 Pantoprazole Sodium (Protonix) 40 mg IVP DAILY [facility] Stop: 04/14/17 08:59 Last Admin: 02/15/17 08:49 Dose: 40 mg Tramadol HCl (Ultram) 100 mg PO Q6HR PRN PRN Reason: PAIN 6 TO 10 Stop: 04/14/17 13:49 Last Admin: 02/15/17 11:39 Dose: 100 mg General: no acute distress, other (obese) HEENT: atraumatic, normocephalic, PERRLA, EOMI Neck: supple, no thyromegaly Cardiovascular: S1S2, regular Lungs: clear to auscultation bilaterally, clear to percussion, wheeze Abdomen: soft, bowel sounds, obese, no tender, no distended Extremities: no cyanosis, no clubbing, no edema Neurological: awake, alert, oriented, CN 2-12 intact Skin: intact Infectious Disease Assmt/Plan - Problem List Patient Problems: All Active Problems DYSPNEA, WHEEZING AND COUGH DURING GRIEV (Acute) - Assessment Assessment: IMPRESSION: 1. CN staph in blood, contaminant. 2. Morbid obesity. 3. Chronic obstructive pulmonary disease, asthma. 4. Stress disorder. 5. Left-sided sciatic. 6. Hyperglycemia. 7. Elevated lactic acidosis, unknown, may have sepsis. 8. The patient actually has sleep apnea. 9. Leukocytosis. RECOMMENDATIONS: Flakito rose IV. Nutritional Asmnt/Malnutr-PDOC - Dietary Evaluation Malnutrition Findings (Please click <Entered> for more info): Nutritional Asmnt/Malnutrition Start: 02/14/17 15: 44 Text: Status: Complete Freq: Document 02/14/17 15:44 GSUN (Rec: 02/14/17 16:01 [email or web address] [id number]) Nutritional Asmnt/Malnutrition Patient General Information Nutritional Screening High Risk Screening Diagnosis Obesity hypoventilation with acute resp failure, acute tracheobronchitis Pertinent Medical Hx/Surgical Hx Morbid obesity, obesity hypoventilation syndrome, sleep apnea, stress disorder, left-sided sciatica, hx bronchitis Subjective Information 46 [address] attempted to visit pt 3 times. First 2 times pt was having difficulty breathing with nursing staff at bedside assisting. Spoke to pt on third visit with family at bedside. Pt was pleasant, with soft voice, appeared lethargic. Pt politely refused to discuss weight at this time. Pt denied nutritional concerns. Pt denied shortness of breath affecting chewing/ swallowing. Avg PO intake 100% of meals, meeting nutritional needs. Current Diet Order/ Nutrition Support [id number] Pertinent Medications Solu-Medrol, Vancomycin, Zofran, Protonix Pertinent Labs 02/13: A1c 6.1H 02/14: glucose 186H Nutritional Hx/Data Height 1.6 m Height (Calculated Centimeters) 160.0 Current Weight (lbs) 136.078 kg Weight (Calculated Kilograms) 136.1 Weight (Calculated Grams) 721445.7 [place] Body Weight 115 Weight Status Morbidly Obese GI Symptoms Food Allergies No Skin Integrity/Comment: Teddy 18. Skin intact. Current %PO Good (75-100%) Estimated Nutritional Goals BEE in Kcals: Adj wt of IBW Calories/Kcals/Kg AdjBW 161.3lb/73.3kg Kcals Calculated 1833-2199kcal (25-30kcal/kg) Protein: Adj wt of IBW Protein Calculated 59g (0.8g/kg) Fluid: ml 1833-2199ml (1ml/kcal) Nutritional Problem 1. Problem Problem Altered nutrition related laboratory values related to Etiology hyperglycemia aeb Signs/Symptoms: A1c 6.1H, glucose 186H Intervention/Recommendation Comments 1. Recommend [id number] due to elevated A1c and glucose. Obtained order from Dr. Damon. Avg PO intake is adequate. 2. Monitor weight. Pt politely refused to discuss weight at this time, will attempt another discussion during follow up. Expected Outcomes/Goals Expected Outcomes/Goals 1. PO intake to meet at least 75% of estimated nutritional needs.
--- NOTE | 2017-02-15 20:16 | General Progress Note ---
Subjective - Review of Systems Service Date: 02/15/17 Subjective: Patient seen and examined doing better denied sob or chest pain or fever or chills Objective - Results Result Diagrams: 02/14/17 06:30 02/14/17 06:30 Recent Labs: Laboratory Last Values WBC 12.0 Th/cmm (4.8-10.8) H D 02/14/17 06:30 RBC 4.10 Mil/cmm (3.80-5.10) 02/14/17 06:30 Hgb 11.2 gm/dL (11.7-15.5) L 02/14/17 06:30 Hct 33.1 % (35.0-45.0) L 02/14/17 06:30 MCV 80.9 fl (81-100) L 02/14/17 06:30 MCH 27.3 pg (27.0-31.0) 02/14/17 06:30 MCHC Differential 33.7 pg (28.0-36.0) 02/14/17 06:30 RDW 13.9 % (11.5-20.0) 02/14/17 06:30 Plt Count 216 Th/cmm (150-400) 02/14/17 06:30 MPV 9.1 fl 02/14/17 06:30 Neutrophils % 88.4 % (40.0-80.0) H 02/13/17 05:50 Band Neutrophils % 3 % (0-10) 02/14/17 06:30 Lymphocytes % 10.3 % (20.0-50.0) L 02/13/17 05:50 Monocytes % 1.0 % (2.0-10.0) L 02/13/17 05:50 Eosinophils % 0.1 % (0.0-5.0) 02/13/17 05:50 Basophils % 0.2 % (0.0-2.0) 02/13/17 05:50 Neutrophils (Manual) 84 % (40-80) H 02/14/17 06:30 Lymphocytes 10 % (20-50) L 02/14/17 06:30 Monocytes 3 % (2-10) 02/14/17 06:30 Platelet Estimate ADEQUATE (NORMAL) 02/14/17 06:30 Specimen Source Arterial 02/14/17 09:35 Sample Site Right Radial 02/14/17 09:35 pH 7.36 (7.35-7.45) 02/14/17 09:35 pCO2 37.0 mmHg (35.0-45.0) 02/14/17 09:35 pO2 79.0 mmHg (80.0-100.0) L 02/14/17 09:35 HCO3 21.7 mEq/L (20.0-26.0) 02/14/17 09:35 Base Excess -4.1 mEq/L (-3.0-3.0) L 02/14/17 09:35 O2 Saturation 95.0 % (92.0-100.0) 02/14/17 09:35 Jarred Test Positive 02/14/17 09:35 Vent Rate NA 02/14/17 09:35 Inspired O2 21 02/14/17 09:35 Tidal Volume NA 02/14/17 09:35 PEEP NA 02/14/17 09:35 Pressure (ins/psv/peep) NA 02/14/17 09:35 Critical Value ACELIS 02/14/17 09:35 Sodium 135 mEq/L (136-145) L 02/14/17 06:30 Potassium 4.4 mEq/L (3.5-5.1) 02/14/17 06:30 Chloride 107 mEq/L (98-107) 02/14/17 06:30 Carbon Dioxide 22.9 mEq/L (21.0-31.0) 02/14/17 06:30 Anion Gap 9.5 (7.0-16.0) 02/14/17 06:30 BUN 16 mg/dL (7-25) 02/14/17 06:30 Creatinine 0.6 mg/dL (0.6-1.2) 02/14/17 06:30 Est GFR ( Amer) > 60.0 ml/min (>90) 02/14/17 06:30 Est GFR (Non-Af Amer) > 60.0 ml/min 02/14/17 06:30 BUN/Creatinine Ratio 26.7 02/14/17 06:30 Glucose 186 mg/dL (70-105) H 02/14/17 06:30 Hemoglobin A1c % 6.1 % (4.0-6.0) H 02/13/17 05:50 Whole Bld Lactic Acid 3.23 mmol/L (0.60-1.99) H* 02/13/17 05:50 Uric Acid 4.3 mg/dL (2.3-6.6) 02/14/17 06:30 Calcium 9.0 mg/dL (8.6-10.3) 02/14/17 06:30 Total Bilirubin 0.2 mg/dL (0.3-1.0) L 02/14/17 06:30 AST 14 U/L (13-39) 02/14/17 06:30 ALT 16 U/L (7-52) 02/14/17 06:30 Alkaline Phosphatase 58 U/L (34-104) 02/14/17 06:30 Ammonia 38 umol/L (16-53) 02/14/17 06:30 Total Protein 7.0 gm/dL (6.0-8.3) 02/14/17 06:30 Albumin 3.4 gm/dL (3.7-5.3) L 02/14/17 06:30 Globulin 3.6 gm/dL 02/14/17 06:30 Albumin/Globulin Ratio 0.9 (1.0-1.8) L 02/14/17 06:30 Triglycerides 100 mg/dL (<150) 02/14/17 06:30 Cholesterol 145 mg/dL (<200) 02/14/17 06:30 LDL Cholesterol Direct 94 mg/dL (75-193) 02/14/17 06:30 HDL Cholesterol 49 mg/dL (23-92) 02/14/17 06:30 Amylase 31 U/L (29-103) 02/14/17 06:30 Reverse T3 0.71 ng/mL (0.87-1.78) L 02/15/17 11:00 TSH 0.23 uIU/ml (0.34-5.60) L 02/14/17 06:30 Urine Source MIDSTREAM 02/14/17 05:00 Urine Color YELLOW 02/14/17 05:00 Urine Clarity CLEAR (CLEAR) 02/14/17 05:00 Urine pH 6.0 02/14/17 05:00 Ur Specific [place] 1.020 (1.005-1.030) 02/14/17 05:00 Urine Protein NEGATIVE mg/dL (NEGATIVE) 02/14/17 05:00 Urine Glucose (UA) NEGATIVE mg/dL (NEGATIVE) 02/14/17 05:00 Urine Ketones NEGATIVE mg/dL (NEGATIVE) 02/14/17 05:00 Urine Blood NEGATIVE (NEGATIVE) 02/14/17 05:00 Urine Nitrate NEGATIVE (NEGATIVE) 02/14/17 05:00 Urine Bilirubin NEGATIVE (NEGATIVE) 02/14/17 05:00 Urine Urobilinogen 0.2 E.U./dL (0.2 - 1.0) 02/14/17 05:00 Ur Leukocyte Esterase NEGATIVE (NEGATIVE) 02/14/17 05:00 Vancomycin Trough 8.5 ug/mL (10-20) L 02/15/17 11:00 Hepatitis C Antibody <0.1 s/co ratio (0.0-0.9) 02/14/17 06:30 - Physical Exam Vitals and I&O: Vital Signs Temp 97.8 F 02/15/17 15:46 Pulse 84 02/15/17 19:35 Resp 20 02/15/17 19:35 BP 143/78 02/15/17 15:46 Pulse Ox 98 02/15/17 19:35 Intake & Output 02/15/17 02/15/17 02/16/17 06:59 18:59 06:59 Other: # Voids 2 Active Medications: Current Medications Acetaminophen (Tylenol) 650 mg PO Q4H PRN PRN Reason: Pain or Fever >101 Stop: 04/13/17 21:29 Last Admin: 02/15/17 08:49 Dose: 650 mg Albuterol/Ipratropium (Duoneb Neb) 3 ml HHN Q4HRT [facility] Stop: 04/13/17 22:59 Last Admin: 02/15/17 19:25 Dose: 3 ml Albuterol/Ipratropium (Duoneb Neb) 3 ml HHN Q2H PRN PRN Reason: sob Stop: 04/13/17 21:29 Last Admin: 02/14/17 13:18 Dose: 3 ml Albuterol/Ipratropium (Duoneb Neb) 3 ml HHN [id number] [facility] Stop: 04/14/17 18:59 Last Admin: 02/14/17 20:15 Dose: 3 ml Azithromycin (Zithromax) 250 mg PO DAILY [facility] Stop: 04/14/17 13:59 Last Admin: 02/15/17 08:48 Dose: 250 mg Budesonide (Pulmicort) 0.5 mg HHN BIDRT [facility] Stop: 04/14/17 18:59 Last Admin: 02/15/17 19:25 Dose: 0.5 mg Budesonide (Pulmicort) 0.5 mg HHN BIDRT [facility] Stop: 04/14/17 18:59 Last Admin: 02/14/17 21:43 Dose: Not Given Gabapentin (Neurontin) 100 mg PO TID [facility] Stop: 04/14/17 13:59 Last Admin: 02/15/17 15:23 Dose: 100 mg Guaifenesin (Robitussin) 200 mg PO Q8HR PRN PRN Reason: Cough Stop: 04/13/17 21:29 Last Admin: 02/14/17 21:34 Dose: 200 mg Ceftriaxone Sodium 1 gm/ (Dextrose) 50 mls @ 100 mls/hr IV Q24H [facility] Stop: 04/14/17 13:59 Last Admin: 02/15/17 15:23 Dose: 100 mls/hr Lidocaine (Lidoderm 5% Patch) 1 patch TD DAILY@2100 [facility] Stop: 04/15/17 20:59 Last Admin: 02/14/17 21:33 Dose: 1 patch Methylprednisolone Sodium Succinate (Solu-Medrol) 20 mg IVP Q8HR [facility] Stop: 04/16/17 20:59 Montelukast Sodium (Singulair) 10 mg PO HS [facility] Stop: 04/14/17 20:59 Last Admin: 02/14/17 21:33 Dose: 10 mg Ondansetron HCl (Zofran) 4 mg IV Q6H PRN PRN Reason: Nausea / Vomiting Stop: 04/14/17 13:50 Pantoprazole Sodium (Protonix) 40 mg IVP DAILY [facility] Stop: 04/14/17 08:59 Last Admin: 02/15/17 08:49 Dose: 40 mg Tramadol HCl (Ultram) 100 mg PO Q6HR PRN PRN Reason: PAIN 6 TO 10 Stop: 04/14/17 13:49 Last Admin: 02/15/17 11:39 Dose: 100 mg Cardiovascular: Regular rate Lungs: Clear to auscultation Assessment/Plan - Problem List Patient Problems: All Active Problems DYSPNEA, WHEEZING AND COUGH DURING GRIEV (Acute) - Assessment Assessment: Acute Asthma exacerbation Chronic low back pain Obesity - Plan Plan: Patient stated she had back injury happened at work in the past for which she had seen Pain management Per RN patient doesn't want strong narcotics pain meds. Patient agreed to increase ULTRAM to 100mg Q6hr prn Continue Rocephine and Zithromax Solumedrol tapered Continue Oxygen and Bronchodilator DC Vanco (chest x ray clear) Pul and ID on board Plan of care discussed with patient and nursings staff Nutritional Asmnt/Malnutr-PDOC - Dietary Evaluation Malnutrition Findings (Please click <Entered> for more info): Nutritional Asmnt/Malnutrition Start: 02/14/17 15: 44 Text: Status: Complete Freq: Document 02/14/17 15:44 GSUN (Rec: 02/14/17 16:01 [email or web address]) Nutritional Asmnt/Malnutrition Patient General Information Nutritional Screening High Risk Screening Diagnosis Obesity hypoventilation with acute resp failure, acute tracheobronchitis Pertinent Medical Hx/Surgical Hx Morbid obesity, obesity hypoventilation syndrome, sleep apnea, stress disorder, left-sided sciatica, hx bronchitis Subjective Information 46 [address] attempted to visit pt 3 times. First 2 times pt was having difficulty breathing with nursing staff at bedside assisting. Spoke to pt on third visit with family at bedside. Pt was pleasant, with soft voice, appeared lethargic. Pt politely refused to discuss weight at this time. Pt denied nutritional concerns. Pt denied shortness of breath affecting chewing/ swallowing. Avg PO intake 100% of meals, meeting nutritional needs. Current Diet Order/ Nutrition Support [id number] Pertinent Medications Solu-Medrol, Vancomycin, Zofran, Protonix Pertinent Labs 02/13: A1c 6.1H 02/14: glucose 186H Nutritional Hx/Data Height 1.6 m Height (Calculated Centimeters) 160.0 Current Weight (lbs) 136.078 kg Weight (Calculated Kilograms) 136.1 Weight (Calculated Grams) 466675.7 [place] Body Weight 115 Weight Status Morbidly Obese GI Symptoms Food Allergies No Skin Integrity/Comment: Teddy 18. Skin intact. Current %PO Good (75-100%) Estimated Nutritional Goals BEE in Kcals: Adj wt of IBW Calories/Kcals/Kg AdjBW 161.3lb/73.3kg Kcals Calculated 1833-2199kcal (25-30kcal/kg) Protein: Adj wt of IBW Protein Calculated 59g (0.8g/kg) Fluid: ml 1833-2199ml (1ml/kcal) Nutritional Problem 1. Problem Problem Altered nutrition related laboratory values related to Etiology hyperglycemia aeb Signs/Symptoms: A1c 6.1H, glucose 186H Intervention/Recommendation Comments 1. Recommend [id number] due to elevated A1c and glucose. Obtained order from Dr. Damon. Avg PO intake is adequate. 2. Monitor weight. Pt politely refused to discuss weight at this time, will attempt another discussion during follow up. Expected Outcomes/Goals Expected Outcomes/Goals 1. PO intake to meet at least 75% of estimated nutritional needs.
[2017-02-15] MEDS: Lidocaine 5% Patch TD SCH (21:19)
[2017-02-16] MEDS: Albuterol/Ipratropium Neb 3 ML AERS HHN SCH ×3 (03:13→12:03)
[2017-02-16] MEDS: methylPREDNISolone SS 40 mg Vial IVP SCH ×2 (05:07→13:13)
[2017-02-16] MEDS: Budesonide 0.5 Mg/2 mL Ud HHN SCH (07:45)
--- NOTE | 2017-02-16 07:51 | Progress Notes ---
DATE: 02/15/2017 PULMONARY PROGRESS NOTE PROBLEM LIST: 1. Acute ___ bronchial asthma. 2. Costochondritis. 3. GE reflux. 4. Severe obstructive sleep apnea syndrome. SYMPTOMS: Nil. Feeling better. He is able to ambulate. No specific new symptoms. Still slight chest tightness, but otherwise unremarkable. PHYSICAL EXAMINATION: VITAL SIGNS: Temperature is 98.2, blood pressure 134/70, and saturation is 98. NECK: Veins not visualized. CHEST: Shows clear with diminished air entry. HEART: Regular. ABDOMEN: Soft and nontender. EXTREMITIES: Shows no peripheral edema. ASSESSMENT: The patient is clinically stable, changed. PLANS AND SUGGESTIONS: We will go ahead and continue current treatment. Okay respiratory chao to be discharged. Prescription left in the chart and needs to have sleep study after authorized as an outpatient and go from there. JOB# [id number]
--- NOTE | 2017-02-16 19:23 | General Progress Note ---
Subjective - Review of Systems Service Date: 02/16/17 Subjective: Patient seen and examined earlier today Patiet was doing better denied sob or chest pain or fever or chills Objective - Results Result Diagrams: 02/14/17 06:30 02/14/17 06:30 Recent Labs: Laboratory Last Values WBC 12.0 Th/cmm (4.8-10.8) H D 02/14/17 06:30 RBC 4.10 Mil/cmm (3.80-5.10) 02/14/17 06:30 Hgb 11.2 gm/dL (11.7-15.5) L 02/14/17 06:30 Hct 33.1 % (35.0-45.0) L 02/14/17 06:30 MCV 80.9 fl (81-100) L 02/14/17 06:30 MCH 27.3 pg (27.0-31.0) 02/14/17 06:30 MCHC Differential 33.7 pg (28.0-36.0) 02/14/17 06:30 RDW 13.9 % (11.5-20.0) 02/14/17 06:30 Plt Count 216 Th/cmm (150-400) 02/14/17 06:30 MPV 9.1 fl 02/14/17 06:30 Neutrophils % 88.4 % (40.0-80.0) H 02/13/17 05:50 Band Neutrophils % 3 % (0-10) 02/14/17 06:30 Lymphocytes % 10.3 % (20.0-50.0) L 02/13/17 05:50 Monocytes % 1.0 % (2.0-10.0) L 02/13/17 05:50 Eosinophils % 0.1 % (0.0-5.0) 02/13/17 05:50 Basophils % 0.2 % (0.0-2.0) 02/13/17 05:50 Neutrophils (Manual) 84 % (40-80) H 02/14/17 06:30 Lymphocytes 10 % (20-50) L 02/14/17 06:30 Monocytes 3 % (2-10) 02/14/17 06:30 Platelet Estimate ADEQUATE (NORMAL) 02/14/17 06:30 Specimen Source Arterial 02/14/17 09:35 Sample Site Right Radial 02/14/17 09:35 pH 7.36 (7.35-7.45) 02/14/17 09:35 pCO2 37.0 mmHg (35.0-45.0) 02/14/17 09:35 pO2 79.0 mmHg (80.0-100.0) L 02/14/17 09:35 HCO3 21.7 mEq/L (20.0-26.0) 02/14/17 09:35 Base Excess -4.1 mEq/L (-3.0-3.0) L 02/14/17 09:35 O2 Saturation 95.0 % (92.0-100.0) 02/14/17 09:35 Jarred Test Positive 02/14/17 09:35 Vent Rate NA 02/14/17 09:35 Inspired O2 21 02/14/17 09:35 Tidal Volume NA 02/14/17 09:35 PEEP NA 02/14/17 09:35 Pressure (ins/psv/peep) NA 02/14/17 09:35 Critical Value ACELIS 02/14/17 09:35 Sodium 135 mEq/L (136-145) L 02/14/17 06:30 Potassium 4.4 mEq/L (3.5-5.1) 02/14/17 06:30 Chloride 107 mEq/L (98-107) 02/14/17 06:30 Carbon Dioxide 22.9 mEq/L (21.0-31.0) 02/14/17 06:30 Anion Gap 9.5 (7.0-16.0) 02/14/17 06:30 BUN 16 mg/dL (7-25) 02/14/17 06:30 Creatinine 0.6 mg/dL (0.6-1.2) 02/14/17 06:30 Est GFR ( Amer) > 60.0 ml/min (>90) 02/14/17 06:30 Est GFR (Non-Af Amer) > 60.0 ml/min 02/14/17 06:30 BUN/Creatinine Ratio 26.7 02/14/17 06:30 Glucose 186 mg/dL (70-105) H 02/14/17 06:30 Hemoglobin A1c % 6.1 % (4.0-6.0) H 02/13/17 05:50 Whole Bld Lactic Acid 3.23 mmol/L (0.60-1.99) H* 02/13/17 05:50 Uric Acid 4.3 mg/dL (2.3-6.6) 02/14/17 06:30 Calcium 9.0 mg/dL (8.6-10.3) 02/14/17 06:30 Total Bilirubin 0.2 mg/dL (0.3-1.0) L 02/14/17 06:30 AST 14 U/L (13-39) 02/14/17 06:30 ALT 16 U/L (7-52) 02/14/17 06:30 Alkaline Phosphatase 58 U/L (34-104) 02/14/17 06:30 Ammonia 38 umol/L (16-53) 02/14/17 06:30 Total Protein 7.0 gm/dL (6.0-8.3) 02/14/17 06:30 Albumin 3.4 gm/dL (3.7-5.3) L 02/14/17 06:30 Globulin 3.6 gm/dL 02/14/17 06:30 Albumin/Globulin Ratio 0.9 (1.0-1.8) L 02/14/17 06:30 Triglycerides 100 mg/dL (<150) 02/14/17 06:30 Cholesterol 145 mg/dL (<200) 02/14/17 06:30 LDL Cholesterol Direct 94 mg/dL (75-193) 02/14/17 06:30 HDL Cholesterol 49 mg/dL (23-92) 02/14/17 06:30 Amylase 31 U/L (29-103) 02/14/17 06:30 Free T4 1.08 ng/dL (0.82-1.77) 02/15/17 11:00 Reverse T3 0.71 ng/mL (0.87-1.78) L 02/15/17 11:00 TSH 0.23 uIU/ml (0.34-5.60) L 02/14/17 06:30 Urine Source MIDSTREAM 02/14/17 05:00 Urine Color YELLOW 02/14/17 05:00 Urine Clarity CLEAR (CLEAR) 02/14/17 05:00 Urine pH 6.0 02/14/17 05:00 Ur Specific [place] 1.020 (1.005-1.030) 02/14/17 05:00 Urine Protein NEGATIVE mg/dL (NEGATIVE) 02/14/17 05:00 Urine Glucose (UA) NEGATIVE mg/dL (NEGATIVE) 02/14/17 05:00 Urine Ketones NEGATIVE mg/dL (NEGATIVE) 02/14/17 05:00 Urine Blood NEGATIVE (NEGATIVE) 02/14/17 05:00 Urine Nitrate NEGATIVE (NEGATIVE) 02/14/17 05:00 Urine Bilirubin NEGATIVE (NEGATIVE) 02/14/17 05:00 Urine Urobilinogen 0.2 E.U./dL (0.2 - 1.0) 02/14/17 05:00 Ur Leukocyte Esterase NEGATIVE (NEGATIVE) 02/14/17 05:00 Vancomycin Trough 8.5 ug/mL (10-20) L 02/15/17 11:00 Hepatitis C Antibody <0.1 s/co ratio (0.0-0.9) 02/14/17 06:30 - Physical Exam Vitals and I&O: Vital Signs Temp 98.2 F 02/16/17 08:00 Pulse 80 02/16/17 12:09 Resp 18 02/16/17 12:09 BP 144/88 02/16/17 08:00 Pulse Ox 97 02/16/17 12:09 Intake & Output 02/16/17 02/16/17 02/17/17 06:59 18:59 06:59 Intake Total 500 650 Balance 500 650 Intake: Oral 500 650 Other: # Voids 2 4 # Bowel Movements 0 General: Alert, Oriented x3 Cardiovascular: Regular rate Lungs: Clear to auscultation Abdomen: Soft Assessment/Plan - Problem List Patient Problems: All Active Problems DYSPNEA, WHEEZING AND COUGH DURING GRIEV (Acute) - Assessment Assessment: Acute Asthma exacerbation Chronic low back pain Obesity - Plan Plan: Pulmonary cleared patient for home discharge Scripts given Out patient follow up pulmonary advised DC Plan of care discussed with patient and nursings staff Nutritional Asmnt/Malnutr-PDOC - Dietary Evaluation Malnutrition Findings (Please click <Entered> for more info): Nutritional Asmnt/Malnutrition Start: 02/14/17 15: 44 Text: Status: Complete Freq: Document 02/14/17 15:44 GSUN (Rec: 02/14/17 16:01 [email or web address]) Nutritional Asmnt/Malnutrition Patient General Information Nutritional Screening High Risk Screening Diagnosis Obesity hypoventilation with acute resp failure, acute tracheobronchitis Pertinent Medical Hx/Surgical Hx Morbid obesity, obesity hypoventilation syndrome, sleep apnea, stress disorder, left-sided sciatica, hx bronchitis Subjective Information 46 [address] attempted to visit pt 3 times. First 2 times pt was having difficulty breathing with nursing staff at bedside assisting. Spoke to pt on third visit with family at bedside. Pt was pleasant, with soft voice, appeared lethargic. Pt politely refused to discuss weight at this time. Pt denied nutritional concerns. Pt denied shortness of breath affecting chewing/ swallowing. Avg PO intake 100% of meals, meeting nutritional needs. Current Diet Order/ Nutrition Support [id number] Pertinent Medications Solu-Medrol, Vancomycin, Zofran, Protonix Pertinent Labs 02/13: A1c 6.1H 02/14: glucose 186H Nutritional Hx/Data Height 1.6 m Height (Calculated Centimeters) 160.0 Current Weight (lbs) 136.078 kg Weight (Calculated Kilograms) 136.1 Weight (Calculated Grams) 466642.7 [place] Body Weight 115 Weight Status Morbidly Obese GI Symptoms Food Allergies No Skin Integrity/Comment: Teddy 18. Skin intact. Current %PO Good (75-100%) Estimated Nutritional Goals BEE in Kcals: Adj wt of IBW Calories/Kcals/Kg AdjBW 161.3lb/73.3kg Kcals Calculated 1833-2199kcal (25-30kcal/kg) Protein: Adj wt of IBW Protein Calculated 59g (0.8g/kg) Fluid: ml 1833-2199ml (1ml/kcal) Nutritional Problem 1. Problem Problem Altered nutrition related laboratory values related to Etiology hyperglycemia aeb Signs/Symptoms: A1c 6.1H, glucose 186H Intervention/Recommendation Comments 1. Recommend [id number] due to elevated A1c and glucose. Obtained order from Dr. Damon. Avg PO intake is adequate. 2. Monitor weight. Pt politely refused to discuss weight at this time, will attempt another discussion during follow up. Expected Outcomes/Goals Expected Outcomes/Goals 1. PO intake to meet at least 75% of estimated nutritional needs.
--- NOTE | 2017-02-17 08:01 | Progress Notes ---
DATE: 02/16/2017 PULMONARY PROGRESS NOTE PROBLEM LIST: 1. Acute bronchial asthma. 2. Severe obstructive sleep apnea syndrome with metabolic disease. SYMPTOMS: Nil. Feeling okay. She is going home today. No specific new symptoms. PHYSICAL EXAMINATION: VITAL SIGNS: Temperature is 98.4, respirations in 20, and saturation is 97 on room air. ENT: Shows no new changes. CHEST: Shows clear with diminished air entry. HEART: Regular. EXTREMITIES: Shows no peripheral edema. ASSESSMENT: The patient is clinically stable. PLANS AND SUGGESTIONS: Okay for discharge and follow up as an outpatient if authorized and go from there. JOB# [id number]
--- NOTE | 2017-03-11 19:53 | Discharge Summary ---
DATE OF DISCHARGE: 02/16/2017 FINAL DIAGNOSES: 1. Acute asthma exacerbation. 2. Morbid obesity. 3. Chronic low back pain. 4. Impaired fasting blood sugars. 5. Acute tracheobronchitis. HOSPITAL COURSE: This is a 46-year-old female admitted for evaluation of the shortness of breath by Dr. Nakul Hayes. The patient was started on bronchodilators. The patient was started on IV antibiotics. Pulmonology was consulted. The patient was given inhaled corticosteroids. I followed the patient from 02/14/2017 until the discharge. The patient's pulmonary status was closely monitored and subsequently improved. The patient was given pain control for her low back pain. The patient's chest x-ray was negative for any acute infiltrate. The patient also was seen by Infectious Disease specialist for a coagulase-negative Staph positive in blood cultures, likely contaminant and no further treatment was recommended. During last week, the patient was highly advised for sleep apnea evaluations and use of sleep apnea machine. The importance of use of sleep apnea machine discussed with the patient, she voiced understanding. After clinical improvement with the clearance of the specialists, the patient was cleared for discharge home with outpatient specialist. FOLLOWUP: The patient was given appropriate prescription upon discharge. DISCHARGE CONDITION: Stable. DISCHARGE MEDICATIONS: Please see medication reconciliation list. DISCHARGE INSTRUCTION: The patient will be followed by primary MD and ict quality assurance engineer as an outpatient. JOB# [id number]
== END 2017-02-16 14:48 | disposition home or self-care (01) | DRG 133 ==
LOC: ER 18:20 → MSI 20:50
PROVIDERS: ADMIT Family Medicine; ATTEND Family Medicine
DX: J96.01 Acute respiratory failure with hypoxia (principal); J44.0 Chronic obstructive pulmonary disease with (acute) lower respiratory infection; J45.901 Unspecified asthma with (acute) exacerbation; E66.2 Morbid (severe) obesity with alveolar hypoventilation; E11.65 Type 2 diabetes mellitus with hyperglycemia; Z68.43 Body mass index [BMI] 50.0-59.9, adult; M54.32 Sciatica, left side; G89.4 Chronic pain syndrome; M94.0 Chondrocostal junction syndrome [Tietze]; K21.9 Gastro-esophageal reflux disease without esophagitis; F43.9 Reaction to severe stress, unspecified; J20.9 Acute bronchitis, unspecified; Z82.49 Family history of ischemic heart disease and other diseases of the circulatory system; Z83.3 Family history of diabetes mellitus
CPT/HCPCS: 36415-UA; 36600-90; 71010-TC; 71020-TC; 80053-TC; 80061-TC; 80202-TC; 81003-TC; 82140-TC; 82150-TC; 82803-TC; 83036-90; 83605; 84439-90; 84443-TC; 84479-TC; 84550-TC; 85007-TC; 85025-TC; 85027-TC; 86803-90; 90779; 93005; 94640; 94760; 96374; 96375; 97530; C9113; J0456; J0696; J2060; J2920; J2930; J3370; J7030; J7040; J7613; X3904; Z7502; Z7610

== ENCOUNTER 2017-08-17 13:00 | Emergency (ER) | payer MEDICAID ==
--- NOTE | 2017-08-17 13:32 | ED Physician Chart ---
ED Chief Complaint/HPI - Patient Information Date Seen:: 08/17/17 Time Seen:: 13:10 Chief Complaint:: Right Knee Pain History of Present Illness:: onset x one month of MS type intermittent right knee pain; pt had recent ER visit with negative X-Rays; no new injuries or recent trauma; pt's last tetanus shot: < 5 years; UTD; no H/As, neck pain, C/P, SOB, Abd/Flank/Back pain, pelvic/ hip pain; no gait changes, weakness, paresthesias, dizziness, LOC, or vertigo Allergies:: Allergies Allergy/AdvReac Type Severity Reaction Status Date / Time No Known Allergies Allergy Verified 11/05/16 21:48 Vitals:: Vital Signs - 8 hr 08/17/17 13:09 Temp 98.7 F HR 77 RR 16 BP 142/91 O2 Sat % 98 Historian:: Patient Review:: Nurse's Note Reviewed ED Review of Systems - Review of Systems General/Constitutional: No fever, No chills, No weight loss, No weakness, No diaphoresis, No edema, No loss of appetite Skin: No skin lesions, No rash, No bruising Head: No headache, No light-headedness Eyes: No loss of vision, No pain, No diplopia ENT: No earache, No nasal drainage, No sore throat, No tinnitus Neck: No neck pain, No swelling, No thyromegaly, No stiffness, No mass noted Cardio Vascular: No chest pain, No palpitations, No PND, No orthopnea, No edema Pulmonary: No SOB, No cough, No sputum, No wheezing GI: No nausea, No vomiting, No diarrhea, No pain, No melena, No hematochezia, No constipation, No hematemesis G/U: No dysuria, No frequency, No hematuria Musculoskeletal: Bone or joint pain, No back pain, Muscle pain Endocrine: No polyuria, No polydipsia Psychiatric: No prior psych history, No depression, No anxiety, No suicidal ideation Hematopoietic: No bruising, No lymphadenopathy Allergic/Immuno: No urticaria, No angioedema Neurological: No syncope, No focal symptoms, No weakness, No paresthesia, No headache, No seizure, No dizziness, No confusion, No vertigo ED Past Medical History - Past Medical History Obtainable: Yes Past Medical History: No significant medical hx Family History: HTN Social History: Non Smoker, No Alcohol, No Drug Use, Single, Employed Surgical History: None Psychiatricy History: None Medication: Reviewed Family Medical History - Family Member Mother History Unknown: Yes Hx Family Coronary Artery Disease: Yes Hx Family Diabetes: Yes ED Physical Exam - Physical Examination General/Constitutional: Awake, Well-developed, well-nourished, Alert, No distress, GCS 15, Non-toxic appearing, Ambulatory Head: Atraumatic Eyes: Lids, conjuctiva normal, PERRL, EOMI Skin: Nl inspection, No rash, No skin lesions, No ecchymosis, Well hydrated, No lymphadenopathy ENMT: External ears, nose nl, Nasal exam nl, Lips, teeth, gums nl Neck: Nontender, Full ROM w/o pain, No JVD, No nuchal rigidity, No bruit, No mass, No stridor Respiratory: Nl effort/Exclusion, Clear to Auscultation, No Wheeze/Rhonchi/Rales Cardio Vascular: RRR, No murmur, gallop, rubs, NL S1 S2 GI: No tenderness/rebounding/guarding, No organomegaly, No hernia, Normal BS's, Nondistended, No mass/bruits, No McBurney tenderness : No CVA tenderness Extremities: No tenderness or effusion, Full ROM, normal strength in all extremities, No edema, Normal digits & nails Other Extremities comments:: Right Knee tenderness upon all PROMs; full active ROMs; no loss of ROMs; no ligament instability; DTRs: 2+ bilaterally; Gait: WNL; good motor, tendon, and sensory functions; good NV functions Neuro/Psych: Alert/oriented, DTR's symmetric, Normal sensory exam, Normal motor strength, Judgement/insight normal, Mood normal, Normal gait, No focal deficits Misc: Normal back, No paraspinal tenderness ED Labs/Radiology/EKG Results - Radiology Results Comments:: X-Rays: deferred by pt ED Septic Shock - . Is Septic Shock (SBP<90, OR Lactate>4 mmol\L) present?: No - <6hrs of presentation: Vital Signs: Vital Signs - 8 hr 08/17/17 13:09 Temp 98.7 F HR 77 RR 16 BP 142/91 O2 Sat % 98 ED Reassessment (Disposition) - Reassessment Reassessment:: pt is asymptomatic upon discharge Reassessment Condition:: Improved - Diagnosis Diagnosis:: Right Knee Pain; Right Knee Sprain; Osteoarthritis; Sprains and Strains - Aftercare/Follow up Instructions Aftercare/Follow-Up Instructions:: Counseled pt regarding lab results/diagnosis & need follow up, Refer to Discharge Instructions, Counseled pt & family regarding lab results/diagnosis & need follow up Medication Prescribed:: Rx: Tylenol #3: one tablet po tid prn pain; (#10); Right Knee Immobilizer; Crutches/cane or Walker; take medications as prescribed; Ice and/or Heat to Right Knee - Patient Disposition Discharge/Transfer:: Home Condition at Disposition:: Stable, Improved (RTER prn if existing s/s reoccur and/or get worse and/or any other new s/s occur; ACIs given for all above Dx; Refer to Orthopedist/Medical Authorization Specialist [email or web address]; F/U with PMD in one day or prn; RTER prn if concerned)
== END 2017-08-17 13:50 | disposition home or self-care (01) ==
LOC: ER 13:00
DX: S83.91XA Sprain of unspecified site of right knee, initial encounter (principal); M19.90 Unspecified osteoarthritis, unspecified site; X58.XXXA Exposure to other specified factors, initial encounter; Y93.89 Activity, other specified; Y92.89 Other specified places as the place of occurrence of the external cause; Y99.8 Other external cause status
CPT/HCPCS: 29505; Z7502